=== PATIENT | female | born 1940 | race Caucasian/White ===

== ENCOUNTER → 2018-01-12 | Outpatient (CLI) | payer MEDICARE, MEDICAID ==
[~2018-01-12] MED LIST: ATOR10TA PO; CLON0.2T10 PO; FAMO20TA5 PO; FOLI1TAB21 PO; LEVO500T51 PO; Levothyroxine Sodium PO; Losartan Potassium PO; RISP0.2518 PO; SULF500T7 PO
[2018-01-12 05:32] LABS: BILIRUBIN,URINE NEGATIVE (NEGATIVE); UROBILINOGEN,URINE NORMAL (NEGATIVE)
[2018-01-12 05:33] LABS: UA COLOR YELLOW (YELLOW)
[2018-01-12 05:34] LABS: APPEARANCE,URINE CLOUDY (CLEAR)
== END | disposition home or self-care (01) ==
LOC: NPLAB 04:55
PROVIDERS: ATTEND Family Medicine
DX: N39.8 Other specified disorders of urinary system (principal); R82.99 Other abnormal findings in urine
CPT/HCPCS: 81000; 87086

== ENCOUNTER → 2018-02-12 | Outpatient (CLI) | payer MEDICARE, MEDICAID ==
[2018-02-12 12:51] LABS: BILIRUBIN,URINE NEGATIVE (NEGATIVE); UROBILINOGEN,URINE NORMAL (NEGATIVE)
[2018-02-12 12:59] LABS: APPEARANCE,URINE SLIGHTLY CLOUDY (CLEAR); UA COLOR STRAW (YELLOW)
== END | disposition home or self-care (01) ==
LOC: NPLAB 11:25
PROVIDERS: ATTEND Family Medicine
DX: N39.0 Urinary tract infection, site not specified (principal); I10 Essential (primary) hypertension; E03.9 Hypothyroidism, unspecified; Z87.891 Personal history of nicotine dependence
CPT/HCPCS: 81000; 87086

== ENCOUNTER 2019-06-20 13:41 | Emergency (ER) | payer MEDICARE, MEDICAID, OTHER ==
[~2019-06-20] VITALS: Ht 165.1 cm; Wt 63.0 kg
[2019-06-20 13:42] VITALS: BP 192/95
[2019-06-20] MEDS ORDERED: NITROSTAT SL STA (13:47)
[2019-06-20] MEDS ORDERED: ASPIRIN PO PRN (14:00)
[2019-06-20 14:07] LABS: BASOPHIL # 0.1 10^3/uL (0.0-0.1); BASOPHIL % 0.2 % (0.0-0.2); EOSINOPHIL # 0.1 10^3/uL (0.0-0.2); EOSINOPHIL % 0.4 % (0.0-5.0); LYMPHOCYTES % 86.1 % (24.0-44.0); MEAN CORP HGB 28.2 pg (26-34); MONOCYTES # 0.8 10^3/uL (0.3-0.8); MONOCYTES % 2.7 % (5.0-12.0); NEUTROPHIL # 2.9 10^3/uL (1.8-7.7); NEUTROPHILS % 10.4 % (41.0-85.0)
--- NOTE | 2019-06-20 14:11 | NUR ---
CRITICAL LAB WBS 27.8. REPORTED TO DR. KAT
--- NOTE | 2019-06-20 14:17 | ER.PDOC ---
General Chief Complaint: Chest Pain-Cardiac Nature Stated Complaint: CHEST PAIN Time seen by MD: 14:11 Source: patient History of Present Illness Initial Comments [place] 2 WEEKS AGO Timing/Duration: 4-6 hours Severity/Quality: moderate Radiation: no radiation Activities at Onset: rest Prior CP/Workup: Cardiolyte Scan Modifying Factors: movement Nitro Today/Relief: 0.4 mg x 1 Aspirin Today: 325 mg x 1 Associated Symptoms: denies symptoms Allergies: Coded Allergies: Penicillins (Verified Allergy, Unknown, Rash, 10/14/15) Home Meds Active Scripts Risperidone (RISPERDAL) 0.25 Mg Tablet, 0.25 MG PO BID, #60 TABLET Prov:PHI HAIR MD 10/21/15 Folic Acid (FOLIC ACID) 1 Mg Tablet, 1 MG PO DAILY for 30 Days, TABLET Prov:KASSY WALSH MD 10/21/15 [Levothyroxine Sodium] 25 MCG TABLET No Conflict Check, 25 MCG PO ACB for 30 Days Prov:KASSY WALSH MD 10/21/15 Famotidine (FAMOTIDINE) 20 Mg Tablet, 20 MG PO BID for 30 Days, TABLET Prov:KASSY WALSH MD 10/21/15 [Losartan Potassium] 50 MG TABLET No Conflict Check, 50 MG PO HS for 30 Days Prov:KASSY WALSH MD 10/21/15 Clonidine Hcl (CATAPRES) 0.2 Mg Tablet, 0.2 MG PO Q6HR PRN for blood pressure for 30 Days, TABLET Prov:KASSY WALSH MD 10/21/15 Atorvastatin 10MG (LIPITOR 10MG) 10 Mg Tablet, 10 MG PO HS for 30 Days, TABLET Prov:KASSY WALSH MD 10/21/15 Sulfasalazine (SULFASALAZINE) 500 Mg Tablet, 500 MG PO BID for 30 Days, TABLET Prov:KASSY WALSH MD 10/21/15 Levofloxacin (LEVAQUIN) 500 Mg Tablet, 500 MG PO DAILY for 5 Days, TABLET Prov:KASSY WALSH MD 10/21/15 Past Medical History Medical History: arrhythmia, cardiac problems, COPD, GERD, hypertension, other Surgical History: cardiac cath, appendectomy, hysterectomy, pacemaker/ICD LMP (females 10-50): postmenopause Social History Smoking: non-smoker Alcohol Use: none Drug Use: none Reviewed Nursing Reviewed: Vital Signs, Abn. Noted All Other Systems: Reviewed and Negative Physical Exam General Appearance: No Apparent Distress, WD/WN HEENT: PERRL/EOMI, Normal ENT Inspection, TMs Normal, Pharynx Normal Neck: Non-Tender, Full Range of Motion, Supple, Normal Inspection Respiratory: chest non-tender, lungs clear, normal breath sounds, no respiratory distress, no accessory muscle use Cardiovascular: Normal Peripheral Pulses, Regular Rate, Rhythm, No Edema, No Gallop, No JVD, No Murmur Gastrointestinal: Normal Bowel Sounds, No Organomegaly, No Pulsatile Mass, Non Tender, Soft Extremities: Normal Range of Motion, Non-Tender, Normal Inspection, No Pedal Edema, No Calf Tenderness, Normal Capillary Refill Skin: Normal Color, Warm/Dry Lymphatic: No Adenopathy Results/Orders Results/Orders Orders - KHUSHBU KAT MD Cbc With Auto Diff (06/20/19 13:47) Comprehensive Metabolic Panel (06/20/19 13:47) Creatine Kinase (06/20/19 13:47) Creatine Kinase Mb (06/20/19 13:47) Troponin I (06/20/19 13:47) Probnp B-Type Signal Helper (06/20/19 13:47) PT (06/20/19 13:47) Partial Thromboplastin Time. (06/20/19 13:47) Helicobacter Pylori (06/20/19 13:47) D-Dimer (06/20/19 13:47) Xr Chest 1v (06/20/19 13:47) Ekg-Routine (06/20/19 13:47) Aspirin (Aspirin) (06/20/19 14:00) Nitroglycerin (Nitrostat) (06/20/19 13:47) Troponin I (06/20/19 15:27) Creatine Kinase (06/20/19 15:27) Creatine Kinase Mb (06/20/19 15:27) Vital Signs Date Time Temp Pulse Resp B/P (MAP) Pulse Ox O2 Delivery O2 Flow Rate FiO2 06/20/19 16:01 97.6 65 14 150/96 (114) 96 Room Air 06/20/19 15:17 148/91 (110) 06/20/19 15:16 97.6 66 14 96 Room Air 06/20/19 13:53 97.6 70 16 99 Room Air 06/20/19 13:42 97.6 78 16 06/20/19 13:42 97.6 84 16 97 Room Air Laboratory Tests Test 06/20/19 13:54 06/20/19 14:11 06/20/19 15:35 White Blood Count 27.8 10^3/uL (4.5-11.0) *H Red Blood Count 4.11 10^6/uL (4.00-5.20) Hemoglobin 11.6 g/dL (12.0-15.0) L Hematocrit 36.5 % (36.0-46.0) Mean Corpuscular Volume 88.8 fL (78-100) Mean Corpuscular Hemoglobin 28.2 pg (26-34) Mean Corpuscular Hemoglobin Concent 31.8 g/dL (33-37) L Red Cell Distribution Width 15.0 % (11.5-14.5) H Platelet Count 142 10^3/uL (150-400) L Mean Platelet Volume 9.6 fL (7.8-11.0) Neutrophils (%) (Auto) 10.4 % (41.0-85.0) L Lymphocytes (%) (Auto) 86.1 % (24.0-44.0) H Monocytes (%) (Auto) 2.7 % (5.0-12.0) L Neutrophils # (Auto) 2.9 10^3/uL (1.8-7.7) Lymphocytes # (Auto) 24.0 10^3/uL (1.0-4.8) H Monocytes # (Auto) 0.8 10^3/uL (0.3-0.8) Absolute Immature Granulocyte (auto 0.05 10^3 u/L (0-2) Immature Granulocytes % 0.20 % (0.00-0.50) Eosinophils % 0.4 % (0.0-5.0) Basophils % 0.2 % (0.0-0.2) Basophils # 0.1 10^3/uL (0.0-0.1) Eosinophil Count 0.1 10^3/uL (0.0-0.2) Prothrombin Time 10.7 SEC (9.4-11.5) Prothrombin Time INR (Non-Therap) 1.0 Activated Partial Thromboplast Time 23.7 SEC (24.67-30.72) D-Dimer 4.05 mg/L (0.19-0.49) *H Sodium Level 142 mmol/L (132-145) Potassium Level 3.7 mmol/L (3.6-5.2) Chloride Level 106.0 mmol/L (96-109) Carbon Dioxide Level 26.3 mmol/L (20.0-32) Anion Gap 13.4 Blood Urea Nitrogen 13 mg/dL (7-18) Creatinine 0.81 mg/dL (0.59-1.40) Estimated GFR () 82.7 (>/=60) BUN/Creatinine Ratio 16.0 Glucose Level 146 mg/dL (70-110) H Calcium Level 9.4 mg/dL (8.4-10.5) Total Bilirubin 0.4 mg/dL (0.2-1.0) Aspartate Amino Transferase (AST) 17 U/L (0-35) Alanine Aminotransferase (ALT) 19 U/L (12-78) Alkaline Phosphatase 95 U/L (50-136) Total Creatine Kinase 139 U/L (26-192) 129 U/L (26-192) Creatine Kinase MB 2.6 ng/mL (0.5-3.6) 2.2 ng/mL (0.5-3.6) Troponin I < 0.02 ng/mL (0.00-0.05) < 0.02 ng/mL (0.00-0.05) Pro-B-Type Natriuretic Peptide 358 pg/mL (0-450) Total Protein 6.3 g/dL (6.4-8.2) L Albumin 3.9 g/dL (3.4-5.0) Globulin 2.4 Helicobacter pylori Screen NEGATIVE (NEGATIVE) Differential Total Cells Counted 100 #CELLS Segmented Neutrophils 9 % (31-76) L Lymphocytes 88 % (25-36) H Monocytes 2 % (3-9) L Basophils 1 % (0-2) Platelet Estimate ADEQUATE Platelet Morphology NORMAL Blood Morphology Comment NORMAL MORPHOLOGY Progress Progress lower ribs reproducible pain EKG/XRAY/CT/US EKG: nonspecific ST T wave chg EKG Comments: PACED LEONIE, Consult/PCP Time Consult/PCP Called: 16:00 Consult/PCP: DR CALERO Reason/Comments: F/U IN 2 DAYS Course Vitals & review Data Vital Sign - Last 24 Hours 06/20/19 06/20/19 06/20/19 06/20/19 13:42 13:42 13:53 15:16 Temp 97.6 97.6 97.6 97.6 Pulse 84 78 70 66 Resp 16 16 16 14 B/P (MAP) Pulse Ox 97 99 96 O2 Delivery Room Air Room Air Room Air 06/20/19 06/20/19 15:17 16:01 Temp 97.6 Pulse 65 Resp 14 B/P (MAP) 148/91 (110) 150/96 (114) Pulse Ox 96 O2 Delivery Room Air Laboratory Tests Test 06/20/19 13:54 06/20/19 14:11 06/20/19 15:35 White Blood Count 27.8 10^3/uL Red Blood Count 4.11 10^6/uL Hemoglobin 11.6 g/dL Hematocrit 36.5 % Mean Corpuscular Volume 88.8 fL Mean Corpuscular Hemoglobin 28.2 pg Mean Corpuscular Hemoglobin Concent 31.8 g/dL Red Cell Distribution Width 15.0 % Platelet Count 142 10^3/uL Mean Platelet Volume 9.6 fL Neutrophils (%) (Auto) 10.4 % Lymphocytes (%) (Auto) 86.1 % Monocytes (%) (Auto) 2.7 % Neutrophils # (Auto) 2.9 10^3/uL Lymphocytes # (Auto) 24.0 10^3/uL Monocytes # (Auto) 0.8 10^3/uL Absolute Immature Granulocyte (auto 0.05 10^3 u/L Immature Granulocytes % 0.20 % Eosinophils % 0.4 % Basophils % 0.2 % Basophils # 0.1 10^3/uL Eosinophil Count 0.1 10^3/uL Prothrombin Time 10.7 SEC Prothrombin Time INR (Non-Therap) 1.0 Activated Partial Thromboplast Time 23.7 SEC D-Dimer 4.05 mg/L Sodium Level 142 mmol/L Potassium Level 3.7 mmol/L Chloride Level 106.0 mmol/L Carbon Dioxide Level 26.3 mmol/L Anion Gap 13.4 Blood Urea Nitrogen 13 mg/dL Creatinine 0.81 mg/dL Estimated GFR () 82.7 BUN/Creatinine Ratio 16.0 Glucose Level 146 mg/dL Calcium Level 9.4 mg/dL Total Bilirubin 0.4 mg/dL Aspartate Amino Transf (AST/SGOT) 17 U/L Alanine Aminotransferase (ALT/SGPT) 19 U/L Alkaline Phosphatase 95 U/L Total Creatine Kinase 139 U/L 129 U/L Creatine Kinase MB 2.6 ng/mL 2.2 ng/mL Troponin I < 0.02 ng/mL < 0.02 ng/mL Pro-B-Type Natriuretic Peptide 358 pg/mL Total Protein 6.3 g/dL Albumin 3.9 g/dL Globulin 2.4 Helicobacter pylori Screen NEGATIVE Differential Total Cells Counted 100 #CELLS Segmented Neutrophils 9 % Lymphocytes 88 % Monocytes 2 % Basophils 1 % Platelet Estimate ADEQUATE Platelet Morphology NORMAL Blood Morphology Comment NORMAL MORPHOLOGY Current Medications Medications (Trade) Dose Ordered Sig/Tawny PRN Reason Start Time Stop Time Status Last Admin Aspirin (Aspirin) 325 mg DAILY PRN CHEST PAIN 06/20/19 14:00 07/20/19 13:59 O2 Sat by Pulse Oximetry: 99 Departure Time of Disposition: 16:00 Disposition: 01 HOME, SELF-CARE Impression: Primary Impression: Chest pain Condition: Improved Referrals: PCP,UNKNOWN (PCP) PRIMARY CARE PROVIDER Duration or Time Spent with Pa: Miesha M KHUSHBU KAT MD Jun 20, 2019 14:17
--- NOTE | 2019-06-20 14:23 | DIREP ---
PROCEDURE:CHEST 1 VIEW COMPARISON:None. INDICATIONS:cp FINDINGS: LUNGS/PLEURA:No significant pulmonary parenchymal abnormalities. No effusions. Minimal scarring in the right lung base. The lungs are clear. No pneumonia heart failure or effusions are seen. No pneumothorax, pneumomediastinum, aortic aneurysm or mediastinal widening is seen. VASCULATURE:Normal. Unremarkable pulmonary vasculature. CARDIAC:Normal. No cardiac silhouette abnormality or cardiomegaly. Left-sided bipolar pacemaker. EKG leads noted. MEDIASTINUM:Normal. No visible mass or adenopathy. BONES:Normal. No fracture or visible bony lesion. Mild deformity of the right 2nd rib noted. OTHER:Negative. CONCLUSION:Minimal scarring in the right lung base. No pneumonia, heart failure or effusions are seen. Dictated by: Hunter Gamboa MD on 06/20/2019 at 02:16 PM
[2019-06-20 14:35] LABS: ALANINE AMINOTRANSFERASE(ML) 19 U/L (12-78); ALKALINE PHOSPHATASE 95 U/L (50-136); ASPARTATE AMINO TRANSFERASE 17 U/L (0-35); CALCIUM 9.4 mg/dL (8.4-10.5); CARBON DIOXIDE 26.3 mmol/L (20.0-32); GLUCOSE 146 mg/dL (70-110)
[2019-06-20 15:17] VITALS: BP 148/91
[2019-06-20 15:20] LABS: BASOPHIL 1 % (0-2); MONOCYTE 2 % (3-9); SEGMENTED NEUTROPHILS 9 % (31-76)
[2019-06-20 15:22] LABS: LYMPHOCYTE 88 % (25-36)
[2019-06-20 16:01] VITALS: BP 150/96
--- NOTE | 2019-06-21 01:36 | PCM.EKG ---
[facility] Test Date: 2019-06-20 Test Time: 13:46:32 Pat Name: VANNA CLARK Department: Room: Gender: F Rail [employer] Clerk: YASMANI : 1940 Requested By: KHUSHBU DAVENPORT Order Number: [id number] Reading MD: Khushbu Davenport Measurements Intervals [place] Rate: 78 P: 67 [place]: 149 QRS: 81 QRSD: 142 T: -85 QT: 438 QTc: 499 Interpretive Statements Atrial-paced complexes Probable left atrial enlargement Right bundle branch block ST depr, consider ischemia, inferior leads No previous ECG available for comparison Electronically Signed On 06-25-2019 8:08:37 ACCOUNT DEVELOPMENT ASSOCIATE by Khushbu Davenport Please click the below link to view image of tracing.
== END 2019-06-20 16:36 | disposition home or self-care (01) ==
LOC: EDBD 13:41 → ER 13:41
DX: R07.9 Chest pain, unspecified (principal); J44.9 Chronic obstructive pulmonary disease, unspecified; K21.9 Gastro-esophageal reflux disease without esophagitis; I10 Essential (primary) hypertension; Z79.82 Long term (current) use of aspirin; Z79.899 Other long term (current) drug therapy; Z88.0 Allergy status to penicillin; Z90.710 Acquired absence of both cervix and uterus; Z95.0 Presence of cardiac pacemaker
CPT/HCPCS: 36415; 71045; 80053; 82550; 82553; 83880; 84484; 85025; 85379; 85610; 85730; 86677; 93005; 99285

== ENCOUNTER 2019-08-28 03:27 | Emergency (ER) | payer MEDICARE, MEDICAID ==
[2019-08-28] VITALS (9 sets, daily range): BP systolic 115–145; BP diastolic 49–71
[~2019-08-28] VITALS: Ht 175.3 cm; Wt 40.8 kg
--- NOTE | 2019-08-28 03:36 | ER.PDOC ---
General Chief Complaint: Requesting Medical Care Stated Complaint: SOB Time seen by MD: 03:36 Source: patient, EMS History of Present Illness Initial Comments 78 Y/O F TO ED BY EMS WITH INCREASED COUGH, CONGESTION THAT STARTED TONIGHT. NO FEVER, NO CHEST PAIN, NO N/V/D. HX S/P ABD AORTIC ANEURYSM REPAIR AT [facility] 1 WEEK AGO. TO ED BY EMS, ALBUTEROL AND ATROVENT GIVEN IN ROUTE PATIENT NOW STATES SHE FEELS MUCH BETTER AND WANTS TO GO HOME. 08/21/2019--H/H AT [facility]-8.6/26.7. Timing/Duration: 1 hour Severity: moderate Activities at Onset: rest Prior Episodes/Possible Cause: frequent episodes, other Modifying Factors: improves with albuterol nebulizer, improves with coughing Associated Symptoms: cough, wheezing Prior symptoms/Treatment: Similar symptoms previous Allergies: Coded Allergies: Penicillins (Verified Allergy, Unknown, Rash, 10/14/15) Home Meds Active Scripts [Levothyroxine Sodium] 25 MCG TABLET No Conflict Check, 25 MCG PO ACB for 30 Days Prov:KASSY WALSH MD 10/21/15 Famotidine (FAMOTIDINE) 20 Mg Tablet, 20 MG PO BID for 30 Days, TABLET Prov:KASSY WALSH MD 10/21/15 Sulfasalazine (SULFASALAZINE) 500 Mg Tablet, 500 MG PO BID for 30 Days, TABLET Prov:KASSY WALSH MD 10/21/15 Reported Medications Guaifenesin (GUAIFENESIN) 400 Mg Tablet, 1 TAB PO BID for cough for 5 Days, #15 TAB 0 Refills 08/28/19 Cranberry Fruit Concentrate (CRANBERRY) 450 Mg Capsule, 450 MG PO BID, CAPSULE 08/28/19 Carvedilol 3.125MG (COREG 3.125MG) 3.125 Mg Tablet, 1 TAB PO BID, #180 TAB 1 Refill 08/28/19 Tramadol Hcl (TRAMADOL HCL) 50 Mg Tablet, 1 TAB PO HS for PAIN, #90 TAB 08/28/19 Losartan Potassium (LOSARTAN POTASSIUM) 100 Mg Tablet, 1 TAB PO DAILY, #30 TAB 5 Refills 08/28/19 Isosorbide Mononitrate (ISOSORBIDE MONONITRATE ER) 30 Mg Tab.er.24h, 1 TAB PO DAILY, #30 TAB 5 Refills 08/28/19 Folic Acid (FOLIC ACID) 0.8 Mg Tablet, 0.8 MG PO DAILY24, TAB 08/28/19 Cyanocobalamin (Vitamin B-12) (B-12) 500 Mcg Tablet, 2 TAB PO QD for 30 Days, #30 TAB 0 Refills 08/28/19 Clopidogrel Bisulfate (CLOPIDOGREL) 75 Mg Tablet, 1 TAB PO DAILY, #90 TAB 1 Refill 08/28/19 Atorvastatin 10MG (LIPITOR 10MG) 10 Mg Tablet, 2 TAB PO HS, #90 TAB 1 Refill 08/28/19 Aspirin (ASPIR-LOW) 81 Mg Tablet.dr, 1 TAB PO DAILY, #30 TAB 3 Refills 08/28/19 Discontinued Scripts Risperidone (RISPERDAL) 0.25 Mg Tablet, 0.25 MG PO BID, #60 TABLET Prov:PHI HAIR MD 10/21/15 Folic Acid (FOLIC ACID) 1 Mg Tablet, 1 MG PO DAILY for 30 Days, TABLET Prov:KASSY WALSH MD 10/21/15 [Losartan Potassium] 50 MG TABLET No Conflict Check, 50 MG PO HS for 30 Days Prov:KASSY WALSH MD 10/21/15 Clonidine Hcl (CATAPRES) 0.2 Mg Tablet, 0.2 MG PO Q6HR PRN for blood pressure for 30 Days, TABLET Prov:KASSY WALSH MD 10/21/15 Atorvastatin 10MG (LIPITOR 10MG) 10 Mg Tablet, 10 MG PO HS for 30 Days, TABLET Prov:KASSY WALSH MD 10/21/15 Levofloxacin (LEVAQUIN) 500 Mg Tablet, 500 MG PO DAILY for 5 Days, TABLET Prov:KASSY WALSH MD 10/21/15 Past Medical History Medical History: arrhythmia, cardiac problems, COPD, GERD, hypertension, other Surgical History: cardiac cath, appendectomy, hysterectomy, pacemaker/ICD Family History Significant Family History: no pertinent family hx Social History Smoking: less than 1 pack/day Alcohol Use: none Drug Use: none Reviewed Nursing Reviewed: Vital Signs, Abn. Noted, Nursing Assessment Review of Systems Constitutional: no symptoms reported EENTM: no symptoms reported Respiratory: cough, shortness of breath, wheezing Cardiovascular: no symptoms reported Gastrointestinal: no symptoms reported Genitourinary: no symptoms reported Musculoskeletal: no symptoms reported Skin: no symptoms reported Psychiatric/Neurological: no symptoms reported Endocrine: no symptoms reported Hematologic/Lymphatic: no symptoms reported Physical Exam General Appearance: No Apparent Distress, WD/WN HEENT: PERRL/EOMI, Normal ENT Inspection, TMs Normal, Pharynx Normal Neck: Non-Tender, Full Range of Motion, Supple, Normal Inspection Respiratory: chest non-tender, no respiratory distress, no accessory muscle use, wheezing, other Cardiovascular: Normal Peripheral Pulses, Regular Rate, Rhythm, No Edema, No Gallop, No JVD, No Murmur Gastrointestinal: Normal Bowel Sounds, No Organomegaly, No Pulsatile Mass, Non Tender, Soft Rectal: Normal Exam, Normal Rectal Tone, Heme Negative Stool Extremities: Normal Range of Motion, Non-Tender, Normal Inspection, No Pedal Edema, No Calf Tenderness, Normal Capillary Refill Neurologic/Psychiatric: automatic presser II-XII NML as Tested, No Motor/Sensory Deficits, Alert, Normal Mood/Affect, Oriented x 3 Skin: Normal Color, Warm/Dry Lymphatic: No Adenopathy Comments LUNGS--MIN ANT WHEEZING ANT LUNG SHAVER, NO RESP DISTRESS. ABD --2 LOWER BILAT INCISIONS--WELL APPOX WITH NO EVID OF INFECTION, NON TENDER, EQUAL BILAT FEMORAL PULSES. RECTAL--BROWN STOOL--TO LAB Results/Orders Results/Orders Orders - RAISSA KRAMER DO Cbc With Auto Diff (08/28/19 03:45) Comprehensive Metabolic Panel (08/28/19 03:45) Probnp B-Type Cork Painter And Grader (08/28/19 03:45) Creatine Kinase Mb (08/28/19 03:45) Troponin I (08/28/19 03:45) Influenza A&B (08/28/19 03:45) Saline Lock (08/28/19 03:45) Xr Chest 2v (08/28/19 03:45) Partial Thromboplastin Time. (08/28/19 03:45) PT (08/28/19 03:45) Methylprednisolone Sod Succ (Solu-Medrol (08/28/19 03:45) Ekg-Routine (08/28/19 03:49) Methylprednisolone Sod Succ (Solu-Medrol (08/28/19 03:59) 0.9 % Sodium Chloride (Ns 1000ml) (08/28/19 04:20) Lactic Acid(Ml) (08/28/19 04:20) Arterial Blood Gas (08/28/19 04:20) Type And Screen (08/28/19 04:20) Blood Culture (08/28/19 04:20) Oseltamivir Phosphate (Tamiflu) (08/28/19 04:20) Ceftriaxone Sodium (Rocephin) (08/28/19 04:30) Levofloxacin 750mg/D5w 100ml (Levaquin) (08/28/19 04:30) 0.9 % Sodium Chloride (Ns 100ml) (08/28/19 04:25) 0.9 % Sodium Chloride (Ns 1000ml) (08/28/19 04:25) Ceftriaxone Sodium (Rocephin) (08/28/19 04:25) Oseltamivir Phosphate (Tamiflu) (08/28/19 04:25) Levofloxacin 750mg/D5w 100ml (Levaquin) (08/28/19 04:37) Urinalysis (08/28/19 04:44) Ct Abd/Pel With Iv Contrast (08/28/19 04:56) Rbc-No Active Bleeding (08/28/19 05:36) 0.9 % Sodium Chloride (Ns 250ml) (08/28/19 05:43) Urine Culture (08/28/19 05:30) Vital Signs Date Time Temp Pulse Resp B/P (MAP) Pulse Ox O2 Delivery O2 Flow Rate FiO2 08/28/19 05:37 80 20 124/50 (74) 94 Nasal [place] 2.00 08/28/19 04:18 73 20 126/49 (74) 92 Nasal Canula 2.00 08/28/19 03:40 98.7 79 20 96 08/28/19 03:40 98.7 79 20 08/28/19 03:40 98.7 79 20 115/52 (73) 96 Nasal [place] 3.00 Administered Medications Medications (Trade) Dose Ordered Sig/Tawny Route PRN Reason Start Time Stop Time Status Last Admin Dose Admin Ceftriaxone Sodium 1000 mg/ Sodium Chloride 100 ml @ 100 mls/hr STAT IV 08/28/19 04:30 09/27/19 04:29 08/28/19 04:45 100 MLS/HR Levofloxacin/ Dextrose 150 ml @ 100 mls/hr Q24HRS ONCE IV 2/6/20 04:30 08/28/19 06:00 DC 08/28/19 04:45 100 MLS/HR Methylprednisolone Sodium Succinate (Solu-Medrol) 125 mg STAT STAT IV 08/28/19 03:45 08/28/19 03:50 DC 08/28/19 04:06 125 MG Oseltamivir Phosphate (Tamiflu) 75 mg STAT STAT PO 08/28/19 04:20 08/28/19 04:24 DC 08/28/19 04:33 75 MG Sodium Chloride 1,000 ml @ 0 mls/hr Q0M STAT IV 08/28/19 04:20 08/28/19 04:24 DC 08/28/19 04:33 1,200 MLS/HR Laboratory Tests Test 08/28/19 00:00 08/28/19 04:00 08/28/19 04:05 08/28/19 04:32 POC Stool Occult Blood NEGATIVE (NEGATIVE) White Blood Count 11.2 10^3/uL (4.5-11.0) H Red Blood Count 2.57 10^6/uL (4.00-5.20) L Hemoglobin 7.0 g/dL (12.0-15.0) L Hematocrit 22.1 % (36.0-46.0) L Mean Corpuscular Volume 86.0 fL (78-100) Mean Corpuscular Hemoglobin 27.2 pg (26-34) Mean Corpuscular Hemoglobin Concent 31.7 g/dL (33-36.5) L Red Cell Distribution Width 16.2 % (11.5-14.5) H Platelet Count 135 10^3/uL (150-400) L Mean Platelet Volume 9.9 fL (7.8-11.0) Neutrophils (%) (Auto) 29.3 % (41.0-85.0) L Lymphocytes (%) (Auto) 66.4 % (24.0-44.0) H Monocytes (%) (Auto) 3.4 % (5.0-12.0) L Neutrophils # (Auto) 3.3 10^3/uL (1.8-7.7) Lymphocytes # (Auto) 7.44 10^3/uL1 (1.0-4.8) H Monocytes # (Auto) 0.4 10^3/uL (0.3-0.8) Absolute Immature Granulocyte (auto 0.03 10^3 u/L (0-2) Absolute Eosinophils (auto) 0.0 10^3/uL (0.0-0.2) Immature Granulocytes % 0.30 % (0.00-0.50) Eosinophils % 0.3 % (0.0-5.0) Basophils % 0.3 % (0.0-0.2) H Basophils # 0.0 10^3/uL (0.0-0.1) Prothrombin Time 11.3 SEC (9.4-11.5) Prothrombin Time INR (Non-Therap) 1.1 Activated Partial Thromboplast Time 28.3 SEC (24.67-30.72) Sodium Level 133 mmol/L (132-145) Potassium Level 3.6 mmol/L (3.6-5.2) Chloride Level 101.0 mmol/L (96-109) Carbon Dioxide Level 23.4 mmol/L (20.0-32) Anion Gap 12.2 Blood Urea Nitrogen 9 mg/dL (7-18) Creatinine 0.74 mg/dL (0.59-1.40) Estimated GFR () 91.8 (>/=60) Est GFR (CKD-EPI)(Non-Afr Danish) 75.9 (>/=60) BUN/Creatinine Ratio 12.0 Glucose Level 121 mg/dL (70-110) H Calcium Level 7.9 mg/dL (8.4-10.5) L Total Bilirubin 0.5 mg/dL (0.2-1.0) Aspartate Amino Transferase (AST) 20 U/L (0-35) Alanine Aminotransferase (ALT) 17 U/L (12-78) Alkaline Phosphatase 69 U/L (50-136) Creatine Kinase MB 1.1 ng/mL (0.5-3.6) Troponin I 0.18 ng/mL (0.00-0.05) H Pro-B-Type Natriuretic Peptide 4621 pg/mL (0-450) H Total Protein 5.3 g/dL (6.4-8.2) L Albumin 2.8 g/dL (3.4-5.0) L Globulin 2.5 Influenza Type A Antigen POSITIVE (NEG) Influenza B Immunofluorescence NEGATIVE (NEG) Blood Gas Sample Site RT RADIAL ARTERY Blood pH 7.570 (7.350-7.450) Blood Gas PCO2 19.5 mmHg (35.0-45.0) *L Blood Gas PO2 87.1 mmHg (80.0-100.0) Blood Gas HCO3 17.5 mmol/L (22.0-26.0) L Blood Gas Base Excess -3.8 mmol/L (-2.0-2.0) L Alfonzo Test POSITIVE Arterial Blood Oxygen Saturation 97.2 % (94.0-97.00) H Deoxyhemoglobin 2.7 % (0.0-5.0) Carboxyhemoglobin 3.7 % (0.0-3.9) Methemoglobin 0.3 % (0.00-5.0) Total Hemoglobin 7.4 % (12.0-17.8) L Total Oxygen Concentration 9.9 % (13.5-17.5) L Oxygen Delivery Method NASAL CANNULA FiO2 28 % (20-101) Total Carbon Dioxide 18.1 mmol/L (23-27) L Test 08/28/19 04:43 Lactic Acid Level 0.9 mmol/L (0.50-2.00) Blood Bank Test 08/28/19 04:43 Antibody Screen NEGATIVE BBK History Checked NO PREVIOUS RECORD Blood Product Summary Counts Blood Type A POSITIVE Progress Progress FEELS MUCH BETTER, STILL COUGHING, NO CHEST PAIN. DIFF DX IN DETAIL--LABS AND WORK UP DISCUSSED. AT 0630 V/S STABLE--NO COMPLAINTS PATIENT AGREES TO TRANSFER, BLOOD AVAILABLE PRIOR TO TRANSFER. EKG/XRAY/CT/US EKG: NSR, RBBB EKG Comments: 0350--ECG-NSR-78, NO ACUTE CHANGES. XRAY: chest XRAY Comments: CHEST X-RAY--LLL PNUMONIA CT Comments: CT ABD/PELVIS-S/P AORTO BI ILIAC STENT WITH POSS ENDO LEAK OF STENT GRAFT Consult/PCP Time Consult/PCP Called: 04:54 Consult/PCP: DR VALLADARES--GET CT SCAN OF ABD/PELVIS AND CALL WITH RESULTS. #2 Time Consult/PCP Called: 06:05 Consult/PCP: [facility] ONE CALL Reason/Comments: TRANSFER TO [facility] ED TO DR ZHANG Departure Time of Disposition: 06:25 Disposition: 70 DISC/XFER TO [facility] Impression: Primary Impression: COPD exacerbation Additional Impressions: Influenza A Left lower lobe pneumonia Anemia S/P abdominal aortic aneurysm repair Condition: Stable If Transfer, List PT Destinati: [facility] TO DR ZHANG Referrals: PCP,UNKNOWN (PCP) PRIMARY CARE PROVIDER Duration or Time Spent with Pa: 45 MIN Problem Qualifiers RAISSA KRAMER DO Aug 28, 2019 03:36
[2019-08-28] MEDS ORDERED: SOLU-MEDROL IV STA (03:45)
--- NOTE | 2019-08-28 03:50 | NUR ---
O2 CHALLENGE PATIENT TITRATED TO RA. O2SAT 93%
--- NOTE | 2019-08-28 03:56 | PCM.EKG ---
[facility] Test Date: 2019-08-28 Test Time: 03:50:25 Pat Name: VANNA CLARK Department: Room: Gender: F Tester Armature Or Fields: ELIZ : 1940 Requested By: UMESH EWING Order Number: [id number] Reading MD: Umesh Ewing Measurements Intervals [place] Rate: 78 P: 59 [place]: 123 QRS: 68 QRSD: 146 T: -39 QT: 446 QTc: 509 Interpretive Statements Sinus rhythm Right bundle branch block Borderline ST depression, lateral leads Compared to ECG 06/20/2019 13:46:32 ST (T wave) deviation now present Atrial-paced complex(es) or rhythm no longer present Possible ischemia no longer present Electronically Signed On 09-03-2019 23:43:26 [employer] by Umesh Ewing Please click the below link to view image of tracing.
[2019-08-28] MEDS ORDERED: SOLU-MEDROL ONE (03:59)
[2019-08-28 04:04] LABS: BASOPHIL % 0.3 % (0.0-0.2); EOSINOPHIL % 0.3 % (0.0-5.0); LYMPHOCYTES # 7.44 10^3/uL1 (1.0-4.8); LYMPHOCYTES % 66.4 % (24.0-44.0); MEAN CORP HGB 27.2 pg (26-34); MONOCYTES # 0.4 10^3/uL (0.3-0.8); MONOCYTES % 3.4 % (5.0-12.0); NEUTROPHIL # 3.3 10^3/uL (1.8-7.7); NEUTROPHILS % 29.3 % (41.0-85.0); PLATELET COUNT 135 10^3/uL (150-400); RED CELL DISTRIBUTION WIDTH 16.2 % (11.5-14.5)
--- NOTE | 2019-08-28 04:09 | NUR ---
O2 O2SAT 85% WHILE ASLEEP. PATIENT PLACED ON O2 AT 2LPM VIA NC. O2SAT 92%. EDP NOTIFIED
--- NOTE | 2019-08-28 04:14 | DIREP ---
PROCEDURE:CHEST 2 VIEWS COMPARISON:[facility], CR, XRAY CHEST SINGLE VW, 06/20/2019, 01:54 PM. INDICATIONS:SOB, COUGH FINDINGS: LUNGS/PLEURA:Left lower lobe infiltrate. Right basilar atelectasis. Hyperinflated lung moise with chronic interstitial changes. No pleural effusion or pneumothorax. VASCULATURE:Unremarkable pulmonary vasculature. Calcified aortic arch. CARDIAC:Heart size within normal limits. Left chest wall dual lead pacemaker. MEDIASTINUM:Normal. No visible mass or adenopathy. BONES:Grossly stable appearance of T12 compression deformity. Degenerative change without evidence of acute osseus abnormality. OTHER:Negative. CONCLUSION: 1. Left lower lobe infiltrate, concerning for pneumonia. Dictated by: Sidney Gamboa MD on 08/28/2019 at 04:10 AM
[2019-08-28] MEDS ORDERED: NS 1000ML 1,000 ML IV STA (04:20)
[2019-08-28] MEDS ORDERED: TAMIFLU PO STA (04:20)
[2019-08-28] MEDS ORDERED: NS 1000ML 1,000 ML ONE (04:25)
[2019-08-28] MEDS ORDERED: ROCEPHIN ONE (04:25)
[2019-08-28] MEDS ORDERED: TAMIFLU PO ONE (04:25)
[2019-08-28] MEDS ORDERED: NS 100ML 100 ML IV ONE (04:25)
[2019-08-28 04:30] LABS: CALCIUM 7.9 mg/dL (8.4-10.5); CARBON DIOXIDE 23.4 mmol/L (20.0-32)
[2019-08-28] MEDS ORDERED: ROCEPHIN 1,000 MG in NS 100ML 100 ML IV SCH (04:30)
[2019-08-28] MEDS ORDERED: LEVAQUIN 150 ML IV ONE ×2 (04:30→04:37)
[2019-08-28 04:42] LABS: ABG PCO2 19.5 mmHg (35.0-45.0); BE(B) -3.8 mmol/L (-2.0-2.0); HCO3act 17.5 mmol/L (22.0-26.0); pO2 87.1 mmHg (80.0-100.0)
--- NOTE | 2019-08-28 04:51 | NUR ---
DR Marixa KRAMER ON PHONE WITH DR VALLADARES
[2019-08-28] MEDS ORDERED: FOLI0.8T2 PO (05:11)
[2019-08-28] MEDS ORDERED: ASPI81TA52 PO (05:11)
[2019-08-28] MEDS ORDERED: GUAI400T80 PO (05:11)
[2019-08-28] MEDS ORDERED: CARV3.12 PO (05:11)
[2019-08-28] MEDS ORDERED: ATOR10TA PO (05:11)
[2019-08-28] MEDS ORDERED: CLOP75TA PO (05:11)
[2019-08-28] MEDS ORDERED: CYAN500T16 PO (05:11)
[2019-08-28] MEDS ORDERED: TRAM50TA PO (05:11)
[2019-08-28] MEDS ORDERED: LOSA100T14 PO (05:11)
[2019-08-28] MEDS ORDERED: ISOS30TA4 PO (05:11)
[2019-08-28] MEDS ORDERED: CRAN450C PO (05:11)
[2019-08-28 05:37] LABS: BILIRUBIN,URINE NEGATIVE (NEGATIVE); UROBILINOGEN,URINE NORMAL (NEGATIVE)
[2019-08-28] MEDS ORDERED: NS 250ML 250 ML IV ONE (05:43)
--- NOTE | 2019-08-28 05:57 | DIREP ---
PROCEDURE:CT ABDOMEN/PELVIS W/ CONTRAST COMPARISON:[facility], CT, CTA ABDOMEN PELVIS W RUNOFF, 02/14/2019, 01:13 PM. INDICATIONS:S/P AAA REPAIR 08/20/2019 AT [facility] WITH ANEMIA. TECHNIQUE:Axial images were created through the abdomen and pelvis with non-ionic intravenous contrast material. No oral contrast was administered. Sagittal and coronal reconstructions were performed from source images. FINDINGS: LUNG BASES:Bibasilar dependent atelectatic change LIVER:Normal. No significant liver lesions are identified. BILIARY:Gallbladder within normal limits. No biliary ductal dilatation. PANCREAS:Normal. No lesion, fluid collection, ductal dilatation, or atrophy. SPLEEN:Enlarged, measuring up to 15.2 cm. Linear hypodensities again seen, likely representing sequela of prior infarct. ADRENALS:Normal. No mass or enlargement. URINARY TRACT:Kidneys enhance symmetrically without hydronephrosis. No nephrolithiasis or ureteral calculi. Urinary bladder distended. Air is seen within the anterior aspect of the urinary bladder. AORTA/VASCULAR:Interval placement of aorto bi-iliac stent graft within fusiform infrarenal abdominal aortic aneurysm. Subcentimeter focus of air identified anteriorly, could be postoperative in nature. Excluded aneurysm sac measures 5.9 x 5.3 cm (previously 5.8 x 5.0 cm). Ovoid hyper attenuating focus identified along the superior aspect of the stent graft measuring 2.8 x 1.7 cm. Evaluation is limited without angiographic or multiphase acquisition. However, findings could indicate type 1 endoleak. Stent graft appears patent. No definite periaortic fat stranding. RETROPERITONEUM:No mass or adenopathy. BOWEL/MESENTERY:No free air. Lack of oral contrast limits evaluation of the bowel structures. Moderate-large hiatal hernia again seen. No small bowel dilatation seen to suggest obstruction. Appendix not definitively identified. Fecal residue seen throughout the colon. ABDOMINAL WALL:Fluid collections within the bilateral inguinal regions measures 3.2 x 2.0 cm on the right and 2.4 x 2.1 cm on the left. Associated surgical clips are identified. This is likely related to cut down from recent endovascular repair. PELVIC ORGANS:Status post hysterectomy. No adnexal masses. BONES:Severe degenerative change with stable multilevel compression deformity. No acute osseus abnormality. OTHER:Negative. CONCLUSION: 1. Interval placement of aorto bi-iliac stent graft within fusiform infrarenal abdominal aortic aneurysm. Findings concerning for type 1 endoleak along the superior aspect of the stent graft. However, evaluation is limited without angiographic phase. Dedicated multi phase CTA is recommended for further evaluation. 2. Aortic aneurysmal dilatation measuring up to 5.9 x 5.3 cm. No evidence of periaortic fat stranding. 3. Air seen within the urinary bladder. Recommend correlation with recent catheterization. 4. 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 5. Moderate-large hiatal hernia. No bowel obstruction. 6. Postsurgical change within the bilateral inguinal regions. 7. Additional findings as described. Dictated by: Sidney Gamboa MD on 08/28/2019 at 05:37 AM
[2019-08-28 06:16] LABS: APPEARANCE,URINE CLOUDY (CLEAR); UA COLOR YELLOW (YELLOW)
--- NOTE | 2019-08-28 06:53 | NUR ---
[facility] ER REPORT GIVEN TO MARCE MORALES AT [facility] ER
--- NOTE | 2019-08-28 06:54 | NUR ---
UPDATE PATIENT SITTING UP IN BED AWAKE AND ALERT AND IN NO DISTRESS. VITAL SIGNS WNL. RECEIVED REPORT FROM [facility] ASSUMED CARE. BLOOD TRANSFUSION OF PRBC INFUSING WITHOUT COMPLICATION. INSTRUCTED PATIENT ON SIGNS OF INFUSION REACTION TO REPORT. WINTERS TO GRAVITY DRAINAGE. PATIENT HAS NO COMPLAINTS AT THIS TIME. O2 AT 2LPM PER NC.
--- NOTE | 2019-08-28 07:02 | NUR ---
PT ASKS THAT HER FAMILY NOT BE NOTIFIED THAT SHE IS BEING TRANSFERRED TO [place].
--- NOTE | 2019-08-28 07:31 | NUR ---
[facility] CALLED FOR TRANSPORT TO [facility].
== END 2019-08-28 07:55 | disposition other institution (70) ==
LOC: ER 03:27 → EDBD 03:27 → ER 07:55
DX: J44.1 Chronic obstructive pulmonary disease with (acute) exacerbation (principal); J18.9 Pneumonia, unspecified organism; D64.9 Anemia, unspecified; J10.1 Influenza due to other identified influenza virus with other respiratory manifestations; I10 Essential (primary) hypertension; K21.9 Gastro-esophageal reflux disease without esophagitis; F17.210 Nicotine dependence, cigarettes, uncomplicated; Z86.79 Personal history of other diseases of the circulatory system; Z88.0 Allergy status to penicillin; Z79.899 Other long term (current) drug therapy; Z79.82 Long term (current) use of aspirin; Z90.710 Acquired absence of both cervix and uterus; Z95.0 Presence of cardiac pacemaker
CPT/HCPCS: 36415; 36430; 36600; 71046; 74177; 80053; 81002; 82272; 82553; 82803; 83605; 83880; 84484; 85025; 85610; 85730; 86885; 86900 ×3; 86901; 86921; 87040 ×2; 87086; 87804 ×2; 93005; 96365; 96366; 96368; 96375; 99285; J0696; J1956; J2930; J7030; J7050 ×2; P9016; Q9965; G9019

== ENCOUNTER → 2019-11-01 | Outpatient (CLI) | payer MEDICARE, OTHER, MEDICAID ==
[~2019-11-01] MED LIST changes: +ACET1TAB38 PO; +ALPR1TAB2 PO; +AMLO10TA4 PO; +ASCO250T12 PO; +ASPI-484 PO; +ASPI81TA52 PO; +ATOR20TA PO; +BENZ100C PO; +CARV12.5 PO; +CARV3.12 PO; +CITA20TA9 PO; +CLOP75TA PO; +CLOP75TA52 PO; +CRAN450C PO; +CRAN450T3 PO; +CYAN500T16 PO; +FAMO-75 PO; +FERR-39 PO; +FLUD0.1T PO; +FLUT16SP; +FOLI0.8C PO; +FOLI0.8T2 PO; +GUAI400T80 PO; +HYDR-3101 PO; +ISOS30TA4 PO; +LANS15CA66 PO; +LEVO25TA4 PO; +LEVO88TA5 PO; +LOSA100T14 PO; +LOVA40TA2 PO; +MONT10TA6 PO; +NAPR500T8 PO; +OMEP20TA9 PO; +PRED20TA PO; +ROFL500T PO; +SIME125C PO; +TIOT4MIS3 IH; +TRAM50TA PO; +VANC1PLA9 IV; +[UNRECOGNIZED DRUG - CODE] PO
== END | disposition home or self-care (01) ==
LOC: LAB 07:00
PROVIDERS: ATTEND Family Medicine
DX: Z87.440 Personal history of urinary (tract) infections (principal)
CPT/HCPCS: 36415; 80202

== ENCOUNTER 2019-11-03 16:59 | Emergency (ER) | payer MEDICARE, OTHER, MEDICAID ==
[~2019-11-03] VITALS: Ht 165.1 cm; Wt 63.5 kg
[~2019-11-03 16:59] MED LIST changes: -FERR-39 PO
[2019-11-03 17:03] VITALS: BP 178/87
--- NOTE | 2019-11-03 17:16 | ER.PDOC ---
General Chief Complaint: Trauma Stated Complaint: FALL Time seen by MD: 17:10 Source: patient, EMS History of Present Illness Initial Comments 79 Y/O F WITH HX TO ED BY EMS WITH HX OFF FALLING. PATIENT FELL 10/24/2019--SEEN AT [facility] WITH RIGHT HIP FRACTURE, ORIF RIGHT HIP BY DR ALTAMIRANO ON 10/26/2019 AND D/MAR[facility]A TO [facility] ON 10/30/2019. PATIENT FELL 0930 TODAY AND NOW HAS LEFT HIP PAIN, PAT IENT LEFT THE HOSP MORE CONFUSED THEN NORMAL PER NURSING STAFF. PATIENT IS A POOR HYSTORIAN, NE STATED HER LEFT HIP IS NO CAUSING HER PAIN, PATIENT DENIES LEFT HIP PAIN--ONLY RIGHT HIP. Occurred: this morning Where: longterm Severity: moderate Injuries/Pain Location: pelvis, lower extremity Loss of Consciousness: No Loss of Consciousness Allergies: Coded Allergies: Penicillins (Verified Allergy, Unknown, Rash, 10/14/15) MEDS Active Scripts Amlodipine Besylate (NORVASC) 10 Mg Tablet, 10 MG PO DAILY, #30 TAB 3 Refills Prov:AQUILES SHIRLEY MD 10/30/19 Vancomycin/0.9 % Sod Chloride (Vanco 1 Gram/250 ml-0.9% NaCl) 1 Gram/250 Ml Plast..bag, 1 GM IV DAILY24, #7 BAG 0 Refills Prov:AQUILES SHIRLEY MD 10/30/19 Tramadol Hcl (TRAMADOL HCL) 50 Mg Tablet, 100 MG PO Q6H PRN for PAIN 7 - 10, #60 TAB 0 Refills Prov:AQUILES SHIRLEY MD 10/30/19 Reported Medications Hydrocodone Bit/Acetaminophen (NORCO 7.5-325) 1 Each Tablet, 1 TAB PO Q6 PRN for PAIN, #120 TAB 10/25/20 Carvedilol 12.5MG (COREG 12.MG) 12.5 Mg Tablet, 1 TAB PO BID, #180 TAB 1 Refill 20 Famotidine (PEPCID) 20 Mg Tablet, 1 TAB PO BID, #60 TAB 3 Refills 10/25/20 Cranberry Fruit (CRANBERRY) 450 Mg Tablet, 1 TAB PO BID for 30 Days, #30 TAB 0 Refills 10/26/19 Sulfasalazine (SULFASALAZINE) 500 Mg Tablet, 500 MG PO BID, TAB 4//20 Atorvastatin 20MG (LIPITOR 20MG) 20 Mg Tablet, 1 TAB PO DAILY, #90 TAB 1 Refill 20 Tramadol Hcl (TRAMADOL HCL) 50 Mg Tablet, 1 TAB PO HS for PAIN, #90 TAB //20 Levothyroxine Sodium (LEVOTHYROXINE SODIUM) 25 Mcg Tablet, 1 TAB PO DAILY, #30 TAB 5 Refills 10/25/20 Aspirin (ASPIR 81) 81 Mg Tablet.dr, 1 TAB PO QD for 30 Days, #30 TAB 0 Refills 20 Cyanocobalamin (Vitamin B-12) (B-12) 1,000 Mcg Tablet.er, 1 TAB PO QD for 30 Days, #30 TAB 0 Refills 10/25/20 Isosorbide Mononitrate (ISOSORBIDE MONONITRATE ER) 30 Mg Tab.er.24h, 1 TAB PO DAILY, #30 TAB 5 Refills 20 Losartan Potassium (LOSARTAN POTASSIUM) 100 Mg Tablet, 1 TAB PO DAILY, #30 TAB 5 Refills 10/25/20 Folic Acid (Folic Acid) 0.8 Mg Capsule, 1 CAP PO QD for 30 Days, #30 CAP 0 Refills 20 Clopidogrel Bisulfate (PLAVIX) 75 Mg Tablet, 1 TAB PO QD for 30 Days, #30 TAB 0 Refills 5/20 Ascorbic Acid (VITAMIN C) 250 Mg Tab.chew, 250 MG PO QOD, TAB //20 Citalopram Hydrobromide (CELEXA) 20 Mg Tablet, 1 TAB PO HS, #30 TAB 2 Refills 10/24/19 Guaifenesin (GUAIFENESIN) 400 Mg Tablet, 1 TAB PO BID for cough for 5 Days, #15 TAB 0 Refills 08/28/19 Discontinued Reported Medications Naproxen (NAPROXEN) 500 Mg Tablet.dr, 1 TAB PO Q6 PRN for PAIN MILD, #60 TAB 2 Refills 10/26/19 Past Medical History Medical History: cardiac problems, COPD, other Surgical History: hip, pacemaker/ICD, other Family History Significant Family History: no pertinent family hx Social History Smoking: non-smoker Alcohol Use: none Drug Use: none Reviewed Nursing Reviewed: Vital Signs, Abn. Noted, Nursing Assessment Review of Systems Constitutional: no symptoms reported Eyes: no symptoms reported Ears, Nose, Mouth, Throat: no symptoms reported Respiratory: no symptoms reported Cardiovascular: no symptoms reported Gastrointestinal: no symptoms reported Genitourinary: no symptoms reported Musculoskeletal: back pain, joint pain Skin: no symptoms reported Psychiatric/Neurological: no symptoms reported Physical Exam General Appearance: Anxious, Mild Distress Head: No Evidence of Injury Eyes: bilateral eye normal inspection Ears, Nose, Mouth, Throat: No Evidence of ENT Injury, No Dental Injury, Decreased Hearing Neck: Non-Tender, Normal Alignment, Nexus criteria neg, Normal Inspection Cardiovascular/Respiratory: Normal Peripheral Pulses, No JVD, Normal Breath Sounds, No Respiratory Distress, Irregularly Irregular, Other Gastrointestinal: Normal Bowel Sounds, No Organomegaly, No Pulsatile Mass, Non Tender, Soft Back: Normal Inspection, No CVA Tenderness, No Vertebral Tenderness Extremities: Pain With Movement, Tenderness 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 LEFT HIP--NL ROM, SEEMS NON TENDER. NEURO--NON FOCAL EXAM, PATIENT HARD TO UNDERSTAND--DOES FOLLOW COMMANDS. [place] Coma Score Best Eye Response: (4) Open Spontaneously Best Verbal Response: (4) Confused Conversation Best Motor Response: (6) Obeys Commands [place] Total: 14 Results/Orders Results/Orders Orders - FANY ZAMBRANO DO Xr Chest 1v (11/03/19 19:46) Vital Signs Date Time Temp Pulse Resp B/P (MAP) Pulse Ox O2 Delivery O2 Flow Rate FiO2 11/03/19 17:03 99.2 75 18 11/03/19 17:03 99.2 75 18 94 10/30/19 09:29 79 Laboratory Tests Test 11/03/19 17:45 11/03/19 18:00 White Blood Count 35.3 10^3/uL (4.5-11.0) *H Red Blood Count 3.51 10^6/uL (4.00-5.20) L Hemoglobin 10.0 g/dL (12.0-15.0) L Hematocrit 33.4 % (36.0-46.0) L Mean Corpuscular Volume 95.2 fL (78-100) Mean Corpuscular Hemoglobin 28.5 pg (26-34) Mean Corpuscular Hemoglobin Concent 29.9 g/dL (33-36.5) L Red Cell Distribution Width 17.5 % (11.5-14.5) H Platelet Count 222 10^3/uL (150-400) Mean Platelet Volume 9.8 fL (7.8-11.0) Neutrophils (%) (Auto) 18.3 % (41.0-85.0) L Lymphocytes (%) (Auto) 78.5 % (24.0-44.0) H Monocytes (%) (Auto) 2.4 % (5.0-12.0) L Neutrophils # (Auto) 6.5 10^3/uL (1.8-7.7) Lymphocytes # (Auto) 27.69 10^3/uL1 (1.0-4.8) H Monocytes # (Auto) 0.9 10^3/uL (0.3-0.8) H Absolute Immature Granulocyte (auto 0.09 10^3 u/L (0-2) Absolute Eosinophils (auto) 0.1 10^3/uL (0.0-0.2) Immature Granulocytes % 0.30 % (0.00-0.50) Eosinophils % 0.4 % (0.0-5.0) Basophils % 0.1 % (0.0-0.2) Basophils # 0.0 10^3/uL (0.0-0.1) Prothrombin Time 13.6 SEC (9.3-11.3) H Prothrombin Time INR (Non-Therap) 1.3 Activated Partial Thromboplast Time 23.6 SEC (24.67-30.72) Urine Collection Type CATH Urine Color DARK YELLOW (YELLOW) H Urine Appearance CLEAR (CLEAR) Urine Bilirubin NEGATIVE MG/DL (NEGATIVE) Urine Ketones NEGATIVE (NEGATIVE) Urine Specific [place] 1.015 (1.005-1.035) Urine pH 6 (5.0-6.0) Urine Protein 15 mg/dL (NEGATIVE) H Urine Urobilinogen NORMAL (NEGATIVE) Urine Nitrate NEGATIVE (NEGATIVE) Urine Leukocyte Esterase NEGATIVE (NEGATIVE) Urine Blood NEGATIVE (NEGATIVE) Urine RBC 2-5 RBC/HPF (NONE SEEN) Urine WBC 2-5 WBC/HPF (0-2) Urine Squamous Epithelial Cells FEW #/HPF (FEW) Urine Bacteria NONE SEEN (NONE SEEN) Urine Yeast MANY Urine Glucose NORMAL (NEGATIVE) Sodium Level 156 mmol/L (132-145) #H Potassium Level 3.1 mmol/L (3.6-5.2) L Chloride Level 117.0 mmol/L (96-109) H Carbon Dioxide Level 28.2 mmol/L (20.0-32) Anion Gap 13.9 Blood Urea Nitrogen 33 mg/dL (7-18) H Creatinine 1.19 mg/dL (0.59-1.40) Estimated GFR () 52.9 (>/=60) Est GFR (CKD-EPI)(Non-Afr Luxembourger) 43.8 (>/=60) BUN/Creatinine Ratio 27.0 Glucose Level 105 mg/dL (70-110) Calcium Level 9.1 mg/dL (8.4-10.5) Total Bilirubin 1.5 mg/dL (0.2-1.0) H Aspartate Amino Transferase (AST) 24 U/L (0-35) Alanine Aminotransferase (ALT) 27 U/L (12-78) Alkaline Phosphatase 83 U/L (50-136) Total Creatine Kinase 63 U/L (26-192) Creatine Kinase MB 0.6 ng/mL (0.5-3.6) Troponin I 0.02 ng/mL (0.00-0.05) Total Protein 5.8 g/dL (6.4-8.2) L Albumin 3.4 g/dL (3.4-5.0) Globulin 2.4 Influenza Type A Antigen NEGATIVE (NEG) Influenza B Immunofluorescence NEGATIVE (NEG) Progress Progress 1899-case to Dr Zambrano Seen and evaluated by myself face to face, I agree with Dr. Ewing. 79yo F who presented after a fall at her longterm. Workup unremarkable aside form potassium at 3.1, replaced. WBC count chronically elevated, f/u with PCP in 2-4 days. Continue fall prevention. EKG/XRAY/CT/US EKG Comments: 8765-ECG--PACED RHYTHM, RATE--81. XRAY Comments: CXR-no new findings. Departure Time of Disposition: 20:05 Disposition: 64 DIS/XFER TO MEDICAID NURS Impression: Primary Impression: Fall at longterm Additional Impressions: Dementia Frail elderly Condition: Stable Patient Instructions: Fall Prevention and Home Safety, [id number] Referrals: CHHAYA BHAKTA (PCP) PRIMARY CARE PROVIDER Additional Instructions: Please continue fall prevention. Your workup here in the ER had no new findings aside from a minorly low potassium. please continue a well rounded diet. Duration or Time Spent with Pa: 30 mins Problem Qualifiers Primary Impression: Fall at longterm Encounter type: initial encounter Qualified Codes: W19.XXXA - Unspecified fall, initial encounter; Y92.129 - Unspecified place in longterm as the place of occurrence of the external cause Additional Impressions: Dementia Dementia type: Alzheimer's disease Alzheimer's disease onset: late-onset Dementia behavioral disturbance: without behavioral disturbance Qualified Codes: G30.1 - Alzheimer's disease with late onset; F02.80 - Dementia in other diseases classified elsewhere without behavioral disturbance RAISSA EWING DO Nov 03, 2019 17:16 FANY ZAMBRANO DO Nov 03, 2019 20:13
[2019-11-03] MEDS ORDERED: NS 1000ML 1,000 ML ONE (17:22)
--- NOTE | 2019-11-03 17:42 | PCM.EKG ---
[facility] Test Date: 2019-11-03 Test Time: 17:33:05 Pat Name: VANNA CLARK Department: Room: Gender: F Bar Useful Or Busser: RT : 1940 Requested By: RAISSA KRAMER Order Number: [id number] Reading MD: Rizwan Zambrano Measurements Intervals [place] Rate: 81 P: NC: 109 QRS: 138 QRSD: 140 T: -26 QT: 530 QTc: 616 Interpretive Statements Ventricular-paced complexes No further analysis attempted due to paced rhythm Compared to ECG 10/24/2019 16:28:00 Sinus rhythm no longer present Right bundle-branch block no longer present Electronically Signed On 11-03-2019 23:58:16 CDT by Rizwan Zambrano Please click the below link to view image of tracing.
[2019-11-03 17:51] LABS: BASOPHIL % 0.1 % (0.0-0.2); EOSINOPHIL # 0.1 10^3/uL (0.0-0.2); EOSINOPHIL % 0.4 % (0.0-5.0); LYMPHOCYTES # 27.69 10^3/uL1 (1.0-4.8); LYMPHOCYTES % 78.5 % (24.0-44.0); MEAN CORP HGB 28.5 pg (26-34); MONOCYTES # 0.9 10^3/uL (0.3-0.8); MONOCYTES % 2.4 % (5.0-12.0); NEUTROPHIL # 6.5 10^3/uL (1.8-7.7); NEUTROPHILS % 18.3 % (41.0-85.0); PLATELET COUNT 222 10^3/uL (150-400); RED CELL DISTRIBUTION WIDTH 17.5 % (11.5-14.5)
[2019-11-03 18:24] LABS: CALCIUM 9.1 mg/dL (8.4-10.5); CARBON DIOXIDE 28.2 mmol/L (20.0-32)
[2019-11-03 18:35] LABS: APPEARANCE,URINE CLEAR (CLEAR); BILIRUBIN,URINE NEGATIVE (NEGATIVE); UA COLOR DARK YELLOW (YELLOW); UROBILINOGEN,URINE NORMAL (NEGATIVE)
[2019-11-03 18:36] LABS: YEAST,URINE MANY
--- NOTE | 2019-11-03 18:44 | DIREP ---
PROCEDURE:XRAY HIP MIN 2VW-BILAT COMPARISON:[facility], CR, XRAY HIP MIN 2VW-RT, 10/24/2019, 04:18 PM. INDICATIONS:FALL, SP ORIF RIGHT HIP 10/26/2019 FINDINGS: BONES:Trochanteric fixation nail and medullary loren stabilize right hip fracture. There is evidence of remote trauma with healed right inferior pubic ramus fracture healed left greater trochanter fracture JOINTS:Normal. SOFT TISSUES:Normal. OTHER:Right femoral stent. Bifurcated aortoiliac stent graft. CONCLUSION: 1. ORIF right hip. Remote trauma. No new abnormality. Dictated by: Elie Escamilla Jr. on 11/03/2019 at 06:41 PM
--- NOTE | 2019-11-03 18:49 | DIREP ---
PROCEDURE:CT HEAD OR BRAIN W/O CONTRAST COMPARISON:None. INDICATIONS:confusion after fall TECHNIQUE:CT images were created without intravenous contrast. FINDINGS: VENTRICLES:There is moderate prominence of the ventricles and cortical sulci consistent with age related involutional changes. CEREBRUM:Normal cerebral morphology with appropriate garber white matter differentiation. CEREBELLUM:Negative. BRAINSTEM:Negative. BASAL CISTERNS:Negative. HEMORRHAGE:No MASS LESION:No ACUTE INFARCT:No SKULL:Normal. SINUSES:Normal. OTHER:None CONCLUSION: 1. Ventriculomegaly, consistent with atrophy. No acute findings. Dictated by: Elie Escamilla Jr. on 11/03/2019 at 06:47 PM
--- NOTE | 2019-11-03 19:03 | DIREP ---
PROCEDURE:XRAY FEMUR 2 VWS-RT COMPARISON:[facility], CR, XRAY FEMUR 2 VWS-RT, 10/26/2019, 09:43 AM. [facility], CR, XRAY HIP MIN 2VW-BILAT, 11/03/2019, 06:20 PM. INDICATIONS:FALL, S/P ORIF FINDINGS: BONES:Recent with gamma nail and long intramedullary loren reduction of right intertrochanteric fracture. No evidence of new fracture or loosening of the hardware. JOINTS:Normal. SOFT TISSUES:Decreased postoperative air. Multiple skin rafa. Femoral arterial calcification and femoral artery stents. OTHER:No additional findings. CONCLUSION:ORIF of right intertrochanteric fracture. No significant change. Dictated by: Lala Lora MD on 11/03/2019 at 06:59 PM
--- NOTE | 2019-11-03 19:59 | DIREP ---
PROCEDURE:CHEST 1 VIEW COMPARISON:[facility], CR, XRAY CHEST SINGLE VW, 10/28/2019, 08:08 PM. [facility], CR, XRAY CHEST SINGLE VW, 10/24/2019, 04:18 PM. [facility], CT, CT ABD/PELVIS W/ CONTRAST, 08/28/2019, 05:11 AM. INDICATIONS:Fall, AMS FINDINGS: LUNGS/PLEURA:No significant pulmonary parenchymal abnormalities. No effusions. VASCULATURE:Normal. Unremarkable pulmonary vasculature. CARDIAC:Normal. No cardiac silhouette abnormality or cardiomegaly. Left pacemaker. MEDIASTINUM:Atherosclerotic aorta with no visible aneurysm. BONES:Normal. No fracture or visible bony lesion. OTHER:EKG leads overlie the chest. CONCLUSION:No acute chest abnormalities. Dictated by: Seymour Pinto M.D. on 11/03/2019 at 07:56 PM
--- NOTE | 2019-11-03 20:02 | NUR ---
[facility], [facility] WAS CALLED AND GIVEN UPDATE ON PT AT THIS TIME. [facility] STATES TO GIVE THEM A CALL BACK WHEN PT IS READY TO BE DISCHARGED.
[2019-11-03] MEDS ORDERED: POTASSIUM CHLORIDE PO STA (20:09)
[2019-11-03] MEDS ORDERED: POTASSIUM CHLORIDE ONE (20:18)
[2019-11-03 20:21] VITALS: BP 178/87
[2019-11-03 20:26] VITALS: BP_SYST 178
--- NOTE | 2019-11-03 21:15 | NUR ---
40 MEQ POTASSIUM GIVEN PO
[2019-11-05 08:02] LABS: ANISOCYTOSIS 1+ (NEGATIVE); BASOPHIL 1 % (0-2); DIFFERENTIAL COMMENT NORMAL; LYMPHOCYTE 80 % (25-36); MONOCYTE 1 % (3-9); SEGMENTED NEUTROPHILS 17 % (31-76)
[2019-11-05 08:03] LABS: OVALOCYTES 1+ (NEGATIVE); SMUDGE CELLS 1+ (NEGATIVE)
== END 2019-11-03 21:30 ==
LOC: EDBD 16:59 → ER 16:59
DX: F03.90 Unspecified dementia, unspecified severity, without behavioral disturbance, psychotic disturbance, mood disturbance, and anxiety (principal); M25.551 Pain in right hip; R79.1 Abnormal coagulation profile; R82.90 Unspecified abnormal findings in urine; Z79.899 Other long term (current) drug therapy; W19.XXXA Unspecified fall, initial encounter; Y93.89 Activity, other specified; Y92.128 Other place in nursing home as the place of occurrence of the external cause; Y99.8 Other external cause status
CPT/HCPCS: 36415; 70450; 71045; 73521; 73552; 80053; 81000; 82550; 82553; 84484; 85025; 85610; 85730; 87086; 87804 ×2; 93005; 99285; J7030; 73550-RT